=== PATIENT | male | born 1965 | race Two or more races ===

== ENCOUNTER 2016-06-07 18:48 | Inpatient (IN) | payer OTHER, MEDICAID ==
[~2016-06-07] VITALS: Ht 172.7 cm; Wt 45.5 kg
[2016-06-07] MEDS ORDERED: KETOROLAC TROMETH 30 MG/ML 1ML VIAL IV ONE (20:45)
[2016-06-07] MEDS ORDERED: MORPHINE SULF INJ 2 MG/ML SYRINGE 1ML IV ONE (22:15)
[2016-06-07] MEDS ORDERED: PIPERACILLIN-TAZOB 3.375GM 100 ML IV ONE (22:15)
[2016-06-07] MEDS ORDERED: SODIUM CHLORIDE 0.9% 1,000 ML IV ONE ×2 (22:15)
[2016-06-07 22:51] LABS: Basophils # (auto) 0 uL; Basophils % (auto) 0.4 % (0.0-2.0); DEFINITIVE VIEW TRANSMISSION; Eosinophils # (auto) 0 uL; Eosinophils % (auto) 0.4 % (0.0-7.0); Hemoglobin 11.3 g/dL (13.5-17.5); Lymphocytes # (auto) 0.8 uL; Lymphocytes % (auto) 9.6 % (10.0-50.0); Mean Corpuscular Hgb Conc. 32.4 g/dL (32.0-36.0); Mean Corpuscular Volume 98.8 fL (80.0-100.0); Mean Platelet Volume 8.3 fL (7.4-10.4); Monocytes # (auto) 0.3 uL; Monocytes % (auto) 3.2 % (0.0-12.0); Neutrophils # (auto) 7.2 uL; Neutrophils % (auto) 86.4 % (37.0-80.0); Platelet Count (auto) 292 10^3/uL (140-450); White Blood Cell 8.3 10^3/uL (4.4-10.8)
[2016-06-07 23:05] LABS: INR 1.13 (0.9-1.15); Partial Thromboplastin Time 30.5 sec (22.64-33.71); Prothrombin Time 11.6 sec (9.37-12.3)
[2016-06-07 23:08] LABS: Red Cell Distribution Width 22.5 % (11.6-16.0)
[2016-06-07 23:19] LABS: Albumin 2.9 g/dL (3.4-5.0); Alkaline Phosphatase 189 U/L (45-117); Anion Gap 14 (5-15); Aspartate Aminotransferase 36 U/L (15-37); BUN/Creatinine Ratio 9.2; Bilirubin, Total 0.6 mg/dL (0.2-1.0); Blood Urea Nitrogen 16 mg/dL (7-18); Calcium 8.6 mg/dL (8.5-10.1); Chloride 128 mmol/L (98-107); GFR African American 53 mL/min; GFR Non-African American 44 mL/min; Glucose 77 mg/dL (74-106); Potassium 3.3 mmol/L (3.5-5.1); Sodium 150 mmol/L (136-145); Total Protein 8.8 g/dL (6.4-8.2)
[2016-06-07 23:28] LABS: Carbon Dioxide 8 mmol/L (21-32)
[2016-06-07 23:31] LABS: Anisocytosis Moderate; Platelet Estimate Adequate
[2016-06-08] MEDS ORDERED: ALBUTEROL SULF 2.5 MG/0.5ML(0.5%) NEB SOLN NEB ONE
[2016-06-08] MEDS ORDERED: IPRATROPIUM BROM 0.5 MG/2.5ML INH SOL NEB ONE
[2016-06-08 00:55] LABS: Urine Bilirubin Negative (Negative); Urine Color Yellow (Yellow); Urine Glucose Normal (Normal); Urine Ketone Negative (Negative); Urine Nitrite Negative (Negative); Urine RBC 2 /hpf (0 - 3); Urine Squamous Epithelial Cell FEW /hpf (<5); Urine Urobilinogen Normal (Negative)
[2016-06-08 00:58] LABS: Urine Blood 1+ /uL (Negative)
[2016-06-08] MEDS ORDERED: GABA300C8 PO (01:33)
[2016-06-08] MEDS ORDERED: SODI650T PO (01:33)
[2016-06-08] MEDS ORDERED: PANT40TA2 PO (01:33)
[2016-06-08] MEDS ORDERED: METO-516 PO (01:33)
[2016-06-08] MEDS: MAGNESIUM SULFATE 1GM/100ML 100 ML IV SCH ×4 (01:39→04:31)
[2016-06-08] MEDS ORDERED: MORPHINE SULF INJ 2 MG/ML SYRINGE 1ML IV PRN (05:30)
[2016-06-08] MEDS ORDERED: NITROGLYCERIN 0.4 MG SL TAB SL PRN (05:30)
[2016-06-08] MEDS ORDERED: HYDROcodone-ACET 5/325MG TAB PO PRN (05:30)
[2016-06-08] MEDS ORDERED: ONDANSETRON HCL 4 MG/2 ML VIAL IV PRN (05:30)
[2016-06-08] MEDS ORDERED: ACETAMINOPHEN 325 MG TAB PO PRN (05:30)
[2016-06-08] MEDS ORDERED: SODIUM CHLORIDE 0.9% 1,000 ML IV SCH (05:33)
[2016-06-08] MEDS ORDERED: METOCLOPRAMIDE HCL 10 MG TAB PO SCH (06:00)
[2016-06-08] MEDS ORDERED: cefTRIAXone 1GM/50ML D5W 50 ML IV SCH (06:00)
[2016-06-08 08:05] LABS: BUN/Creatinine Ratio 8.9; Calcium 7.9 mg/dL (8.5-10.1); Magnesium 2.6 mg/dL (1.6-2.6)
[2016-06-08 08:11] LABS: Potassium 2.7 mmol/L (3.5-5.1)
[2016-06-08 08:13] VITALS: BP 126/69
[2016-06-08] MEDS ORDERED: MORPHINE SULF 15mg ER tab PO SCH (10:00)
[2016-06-08] MEDS ORDERED: LACTULOSE 20Gm/30ML SOLN PO SCH (10:00)
[2016-06-08] MEDS ORDERED: FAMOTIDINE 20 MG TAB PO SCH (10:00)
[2016-06-08] MEDS ORDERED: ENOXAPARIN SOD 40 MG/0.4 ML SYRINGE SC SCH (10:00)
[2016-06-08] MEDS ORDERED: SODIUM BICARBONATE 650 MG TAB PO SCH (10:00)
[2016-06-08] MEDS ORDERED: ENOXAPARIN SOD 30 MG/0.3 ML SYRINGE SC SCH (10:00)
[2016-06-08] MEDS ORDERED: PANTOPRAZOLE 40 MG TAB PO SCH (10:00)
== END 2016-06-08 09:37 | disposition left against medical advice (07) | DRG 689 ==
LOC: ER 18:57 → TELE 18:58 → TELE-WESTW 06-08 06:17
PROVIDERS: ADMIT Nurse Practitioner; ATTEND Nurse Practitioner
DX: N39.0 Urinary tract infection, site not specified (principal); G92 Toxic encephalopathy; E87.2 Acidosis; E72.20 Disorder of urea cycle metabolism, unspecified; K56.7 Ileus, unspecified; E86.0 Dehydration; N18.9 Chronic kidney disease, unspecified; G89.4 Chronic pain syndrome; F12.90 Cannabis use, unspecified, uncomplicated; K20.9 Esophagitis, unspecified; N20.0 Calculus of kidney
CPT/HCPCS: 36415; 36600; 70450; 71010; 74176; 80048; 80053; 80320; 81001; 82140; 82550; 82805; 82962; 83605; 83735; 84484; 85025; 85610; 85730; 86141; 87040; 87086; 93005; 94640; 96361; 96365; 96367; 96375; 99291; G0434; J0696; J1885; J2543

== ENCOUNTER 2017-04-18 17:08 | Inpatient (IN) | payer OTHER, MEDICAID ==
[~2017-04-18] VITALS: Ht 172.7 cm; Wt 50.8 kg
[~2017-04-18 17:08] MED LIST: GABA300C10 PO; METO-516 PO; PANT40TA2 PO; SODI650T PO
[2017-04-18 18:18] LABS: Basophils # (auto) 0 uL; Eosinophils # (auto) 0 uL; Hemoglobin 8.6 g/dL (13.5-17.5); Monocytes # (auto) 0.2 uL; Red Cell Distribution Width 16.3 % (11.8-14.3)
[2017-04-18 18:19] LABS: Basophils % (auto) 0.3 % (0.0-2.0); Hematocrit 27.4 % (41.0-53.0); Lymphocytes # (auto) 0.5 uL; Lymphocytes % (auto) 5.1 % (10.0-50.0); Mean Corpuscular Hemoglobin 33.5 pg (28.0-32.0); Mean Corpuscular Hgb Conc. 31.2 g/dL (32.0-36.0); Mean Corpuscular Volume 107.1 fL (80.0-100.0); Monocytes % (auto) 2.5 % (0.0-12.0); Neutrophils # (auto) 8.6 uL; Neutrophils % (auto) 92.1 % (37.0-80.0); Nucleated Red Blood Cells % 0.1 %; Red Blood Cells 2.56 10^6/uL (4.5-5.90); White Blood Cell 9.4 10^3/uL (4.4-10.8)
[2017-04-18 18:20] LABS: Albumin 2.3 g/dL (3.4-5.0); BUN/Creatinine Ratio 9.8
[2017-04-18 18:22] LABS: Bilirubin, Total 0.2 mg/dL (0.2-1.0); Total Protein 7.1 g/dL (6.4-8.2)
[2017-04-18 18:25] LABS: Platelet Count (auto) 126 10^3/uL (140-450)
[2017-04-18] MEDS ORDERED: SODIUM CHLORIDE 0.9% 1,000 ML IV ONE ×2 (19:56)
[2017-04-18] MEDS ORDERED: POTASSIUM CHL 10% (20 MEQ/15ML) 15ml ORAL SOLN PO ONE (20:00)
[2017-04-18] MEDS ORDERED: SODIUM BICARBONATE 8.4 % INJ 50ML VIAL IV ONE (20:00)
[2017-04-18] MEDS ORDERED: cefTRIAXone 1GM/10ml IVPUSH 10 ML IV ONE (20:15)
[2017-04-18 22:06] LABS: Urine Bacteria FEW /hpf (None Seen); Urine Blood TRACE /uL (Negative); Urine Mucus FEW (None Seen); Urine Specific Gravity 1.009 (1.001-1.035); Urine WBC 3 /hpf (0 - 3)
[2017-04-19] VITALS (8 sets, daily range): BP systolic 118–142; BP diastolic 68–95
[2017-04-19] MEDS ORDERED: MORPHINE SULFATE 4 MG/ML SYR/VIAL IV PRN ×3 (00:15→12:15)
[2017-04-19] MEDS ORDERED: METOCLOPRAMIDE HCL 10 MG TAB PO PRN ×2 (00:15→06:45)
[2017-04-19] MEDS ORDERED: NITROGLYCERIN 0.4 MG SL TAB SL PRN (00:15)
[2017-04-19] MEDS ORDERED: GABAPENTIN 300 MG CAP PO SCH ×2 (06:00)
[2017-04-19] MEDS: SODIUM CHLORIDE 0.9% 1,000 ML IV SCH ×2 (06:30→16:59)
[2017-04-19 08:34] LABS: Basophils # (auto) 0 uL; Basophils % (auto) 0.2 % (0.0-2.0); Eosinophils # (auto) 0 uL; Eosinophils % (auto) 0.1 % (0.0-7.0); Hematocrit 26.2 % (41.0-53.0); Hemoglobin 8.4 g/dL (13.5-17.5); Lymphocytes # (auto) 0.4 uL; Lymphocytes % (auto) 4.2 % (10.0-50.0); Mean Corpuscular Hemoglobin 33.2 pg (28.0-32.0); Mean Corpuscular Hgb Conc. 32.2 g/dL (32.0-36.0); Monocytes # (auto) 0.2 uL; Monocytes % (auto) 2.1 % (0.0-12.0); Neutrophils # (auto) 8.9 uL; Neutrophils % (auto) 93.4 % (37.0-80.0); Platelet Count (auto) 131 10^3/uL (140-450); Red Blood Cells 2.54 10^6/uL (4.5-5.90); Red Cell Distribution Width 15.5 % (11.8-14.3); White Blood Cell 9.5 10^3/uL (4.4-10.8)
[2017-04-19 08:38] LABS: Albumin 2.3 g/dL (3.4-5.0); Calcium 6.9 mg/dL (8.5-10.1); Magnesium 1.3 mg/dL (1.6-2.6); Potassium 3.2 mmol/L (3.5-5.1)
[2017-04-19 08:42] LABS: Bilirubin, Total 0.2 mg/dL (0.2-1.0); Total Protein 7.1 g/dL (6.4-8.2)
[2017-04-19] MEDS ORDERED: SODIUM BICARBONATE 650 MG TAB PO SCH (10:00)
[2017-04-19] MEDS ORDERED: PANTOPRAZOLE 40 MG/10 ML VIAL IV SCH (10:00)
[2017-04-19] MEDS: SODIUM BICARBONATE 650 MG TAB PO SCH ×2 (10:02→21:07)
[2017-04-19] MEDS: PANTOPRAZOLE 40 MG/10 ML VIAL IV SCH (10:02)
[2017-04-19] MEDS: ACETAMINOPHEN 325 MG TAB PO PRN (12:13)
[2017-04-19] MEDS ORDERED: MAGNESIUM SULFATE 1GM/100ML 100 ML IV ONE (12:15)
[2017-04-19] MEDS ORDERED: DOCUSATE SOD 100 MG CAP PO PRN (12:15)
[2017-04-19] MEDS ORDERED: ONDANSETRON HCL 4 MG/2 ML VIAL IV PRN (12:15)
[2017-04-19] MEDS ORDERED: cefTRIAXone 1GM/10ml IVPUSH 10 ML IV ONE (12:15)
[2017-04-19] MEDS ORDERED: AZITHROMYCIN 500MG/ 250ML 250 ML IV ONE (12:15)
[2017-04-19] MEDS ORDERED: POTASSIUM CHLORIDE 8 MEQ TAB PO ONE (12:30)
[2017-04-19] MEDS: HYDROcodone-ACET 5/325MG TAB PO PRN ×2 (13:34→21:07)
[2017-04-19] MEDS: FAMOTIDINE 20 MG TAB PO SCH (15:40)
[2017-04-19] MEDS: BOOST PLUS 8 ounce PO SCH (18:08)
[2017-04-19] MEDS: ALBUTEROL SULF 2.5 MG/0.5ML(0.5%) NEB SOLN NEB SCH (19:33)
[2017-04-19] MEDS: IPRATROPIUM BROM 0.5 MG/2.5ML INH SOL NEB SCH (19:33)
[2017-04-19] MEDS ORDERED: FAMOTIDINE 20 MG TAB PO SCH (22:00)
[2017-04-20] MEDS: HYDROcodone-ACET 5/325MG TAB PO PRN ×2 (04:01→16:01)
[2017-04-20 05:00] VITALS: BP 118/70
[2017-04-20] MEDS: SODIUM CHLORIDE 0.9% 1,000 ML IV SCH ×2 (05:20→12:30)
[2017-04-20 05:49] LABS: Basophils # (auto) 0 uL; Basophils % (auto) 0.3 % (0.0-2.0); Eosinophils # (auto) 0 uL; Platelet Count (auto) 126 10^3/uL (140-450); White Blood Cell 5.8 10^3/uL (4.4-10.8)
[2017-04-20 05:52] LABS: Eosinophils % (auto) 0.2 % (0.0-7.0); Hematocrit 26.1 % (41.0-53.0); Hemoglobin 8.6 g/dL (13.5-17.5); Lymphocytes # (auto) 0.4 uL; Lymphocytes % (auto) 6.5 % (10.0-50.0); Mean Corpuscular Hgb Conc. 32.9 g/dL (32.0-36.0); Mean Corpuscular Volume 103.3 fL (80.0-100.0); Monocytes # (auto) 0.1 uL; Monocytes % (auto) 2.5 % (0.0-12.0); Neutrophils # (auto) 5.3 uL; Neutrophils % (auto) 90.5 % (37.0-80.0); Nucleated Red Blood Cells % 0.1 %; Red Blood Cells 2.52 10^6/uL (4.5-5.90); Red Cell Distribution Width 15.3 % (11.8-14.3)
[2017-04-20 06:08] LABS: Albumin 2.2 g/dL (3.4-5.0); Bilirubin, Total 0.3 mg/dL (0.2-1.0); Calcium 6.7 mg/dL (8.5-10.1); Potassium 3.4 mmol/L (3.5-5.1)
[2017-04-20] MEDS: IPRATROPIUM BROM 0.5 MG/2.5ML INH SOL NEB SCH ×4 (06:48→19:17)
[2017-04-20] MEDS: ALBUTEROL SULF 2.5 MG/0.5ML(0.5%) NEB SOLN NEB SCH ×4 (06:48→19:17)
[2017-04-20 08:00] VITALS: BP 128/80
[2017-04-20] MEDS: BOOST PLUS 8 ounce PO SCH ×3 (08:00→18:00)
[2017-04-20] MEDS: PANTOPRAZOLE 40 MG/10 ML VIAL IV SCH (10:14)
[2017-04-20] MEDS: AZITHROMYCIN 500MG/ 250ML 250 ML IV SCH (10:14)
[2017-04-20] MEDS: MULTIPLE VITAMIN TAB PO SCH (10:15)
[2017-04-20] MEDS: SODIUM BICARBONATE 650 MG TAB PO SCH (10:15)
[2017-04-20] MEDS: GABAPENTIN 300 MG CAP PO SCH (10:15)
[2017-04-20] MEDS: FAMOTIDINE 20 MG TAB PO SCH (10:15)
[2017-04-20] MEDS: cefTRIAXone 1GM/10ml IVPUSH 10 ML IV SCH (10:31)
[2017-04-20 12:00] VITALS: BP 113/70
[2017-04-20] MEDS ORDERED: SOD CHL 0.45% WITH 20MEQ KCL 1,000 ML IV SCH (13:15)
[2017-04-20 17:08] VITALS: BP 125/71
[2017-04-20] MEDS: MAGNESIUM SULFATE 1GM/100ML 100 ML IV SCH ×2 (18:12→19:24)
[2017-04-20] MEDS: SODIUM BICARBONATE 50ML VIAL 50 ML in D5W/SOD CHL 0.45%/KCL 20MEQ 1,000 ML IV SCH (18:29)
[2017-04-20 19:06] LABS: Creatinine, Urine 20 mg/dL (30.0-125.0); Sodium Urine 85 mmol/L (40-220)
[2017-04-20 19:56] LABS: INR 1.08 (0.9-1.15); Prothrombin Time 11.8 sec (9.37-12.3)
[2017-04-20 22:00] VITALS: BP 105/63
[2017-04-21] MEDS: IPRATROPIUM BROM 0.5 MG/2.5ML INH SOL NEB SCH ×4 (01:16→19:43)
[2017-04-21] MEDS: ALBUTEROL SULF 2.5 MG/0.5ML(0.5%) NEB SOLN NEB SCH ×4 (01:16→19:43)
[2017-04-21 05:00] VITALS: BP 129/63
[2017-04-21] MEDS: SODIUM BICARBONATE 50ML VIAL 50 ML in D5W/SOD CHL 0.45%/KCL 20MEQ 1,000 ML IV SCH ×3 (05:21→23:15)
[2017-04-21 07:49] LABS: Basophils # (auto) 0 uL; Basophils % (auto) 0.5 % (0.0-2.0); Eosinophils # (auto) 0 uL; Hematocrit 26.5 % (41.0-53.0); Hemoglobin 8.5 g/dL (13.5-17.5); Lymphocytes # (auto) 0.4 uL; Mean Corpuscular Hgb Conc. 32.1 g/dL (32.0-36.0)
[2017-04-21 07:52] LABS: Eosinophils % (auto) 0.2 % (0.0-7.0); Mean Corpuscular Hemoglobin 33.4 pg (28.0-32.0); Mean Corpuscular Volume 104.2 fL (80.0-100.0); Monocytes # (auto) 0.1 uL; Monocytes % (auto) 3.2 % (0.0-12.0); Neutrophils # (auto) 3.9 uL; Neutrophils % (auto) 87.1 % (37.0-80.0); Platelet Count (auto) 125 10^3/uL (140-450); Red Blood Cells 2.54 10^6/uL (4.5-5.90); Red Cell Distribution Width 15.6 % (11.8-14.3); White Blood Cell 4.4 10^3/uL (4.4-10.8)
[2017-04-21] MEDS: BOOST PLUS 8 ounce PO SCH ×3 (08:00→18:00)
[2017-04-21 08:04] LABS: BUN/Creatinine Ratio 13.3; Calcium 7.3 mg/dL (8.5-10.1); Magnesium 2.4 mg/dL (1.6-2.6); Potassium 3.5 mmol/L (3.5-5.1)
[2017-04-21 08:10] LABS: Phosphorus 2.8 mg/dL (2.5-4.90); Uric Acid 5.2 mg/dL (3.5-7.2)
[2017-04-21 08:11] VITALS: BP 126/72
[2017-04-21] MEDS: cefTRIAXone 1GM/10ml IVPUSH 10 ML IV SCH (08:54)
[2017-04-21] MEDS: PANTOPRAZOLE 40 MG/10 ML VIAL IV SCH (09:19)
[2017-04-21] MEDS: AZITHROMYCIN 500MG/ 250ML 250 ML IV SCH (09:20)
[2017-04-21] MEDS: GABAPENTIN 300 MG CAP PO SCH (09:20)
[2017-04-21] MEDS: FAMOTIDINE 20 MG TAB PO SCH (09:20)
[2017-04-21] MEDS: MULTIPLE VITAMIN TAB PO SCH (09:20)
[2017-04-21] MEDS ORDERED: POTASSIUM CHL 20 Meq TABLET PO ONE (11:15)
[2017-04-21 11:50] VITALS: BP 120/70
[2017-04-21 17:12] VITALS: BP 124/70
[2017-04-21] MEDS: HYDROcodone-ACET 5/325MG TAB PO PRN (21:52)
[2017-04-21] MEDS: TEMAZEPAM 15 MG CAP PO PRN (21:53)
[2017-04-21 22:00] VITALS: BP 123/73
[2017-04-22] VITALS (7 sets, daily range): BP systolic 111–135; BP diastolic 66–74
[2017-04-22] MEDS: SODIUM BICARBONATE 50ML VIAL 50 ML in D5W/SOD CHL 0.45%/KCL 20MEQ 1,000 ML IV SCH ×3 (04:45→22:15)
[2017-04-22] MEDS: IPRATROPIUM BROM 0.5 MG/2.5ML INH SOL NEB SCH ×4 (07:19→19:34)
[2017-04-22] MEDS: ALBUTEROL SULF 2.5 MG/0.5ML(0.5%) NEB SOLN NEB SCH ×4 (07:19→19:34)
[2017-04-22] MEDS: BOOST PLUS 8 ounce PO SCH ×3 (08:00→18:00)
[2017-04-22 08:20] LABS: Basophils # (auto) 0 uL; Eosinophils # (auto) 0 uL; Eosinophils % (auto) 0.5 % (0.0-7.0); Lymphocytes # (auto) 0.4 uL; Monocytes # (auto) 0.1 uL
[2017-04-22 08:22] LABS: Basophils % (auto) 0.5 % (0.0-2.0); Hematocrit 25.3 % (41.0-53.0); Hemoglobin 8.3 g/dL (13.5-17.5); Lymphocytes % (auto) 12.7 % (10.0-50.0); Mean Corpuscular Hemoglobin 33.5 pg (28.0-32.0); Mean Corpuscular Hgb Conc. 32.7 g/dL (32.0-36.0); Mean Corpuscular Volume 102.4 fL (80.0-100.0); Monocytes % (auto) 4.3 % (0.0-12.0); Neutrophils # (auto) 2.4 uL; Platelet Count (auto) 151 10^3/uL (140-450); Red Blood Cells 2.48 10^6/uL (4.5-5.90); Red Cell Distribution Width 15.6 % (11.8-14.3)
[2017-04-22 08:35] LABS: BUN/Creatinine Ratio 11.4; Calcium 7.3 mg/dL (8.5-10.1); Magnesium 2.4 mg/dL (1.6-2.6); Potassium 4.1 mmol/L (3.5-5.1)
[2017-04-22 08:37] LABS: Alanine Aminotransferase 27 U/L (16-61); Albumin 2.2 g/dL (3.4-5.0); Alkaline Phosphatase 141 U/L (45-117); Aspartate Aminotransferase 25 U/L (15-37); Bilirubin, Direct < 0.1 mg/dL (0-0.2); Bilirubin, Total 0.3 mg/dL (0.2-1.0); Lactate Dehydrogenase 203 U/L (87-241); Total Protein 7.5 g/dL (6.4-8.2)
[2017-04-22 08:48] LABS: % Iron Saturation 72.7 % (20-55)
[2017-04-22] MEDS: GABAPENTIN 300 MG CAP PO SCH (09:32)
[2017-04-22] MEDS: MULTIPLE VITAMIN TAB PO SCH (09:33)
[2017-04-22] MEDS: PANTOPRAZOLE 40 MG/10 ML VIAL IV SCH (09:33)
[2017-04-22] MEDS: FAMOTIDINE 20 MG TAB PO SCH (09:33)
[2017-04-22] MEDS: POTASSIUM CHL 20 Meq TABLET PO SCH (09:33)
[2017-04-22] MEDS: cefTRIAXone 1GM/10ml IVPUSH 10 ML IV SCH (09:34)
[2017-04-22] MEDS: AZITHROMYCIN 500MG/ 250ML 250 ML IV SCH (09:35)
[2017-04-22 14:43] LABS: Ferritin 661.5 ng/mL (10-322)
[2017-04-22 14:44] LABS: Folate (Folic Acid) 13.22 ng/mL (5.38-24)
[2017-04-22] MEDS: HYDROcodone-ACET 5/325MG TAB PO PRN (22:07)
[2017-04-23] MEDS: HYDROcodone-ACET 5/325MG TAB PO PRN ×3 (03:49→20:11)
[2017-04-23 05:00] VITALS: BP 118/68
[2017-04-23] MEDS: IPRATROPIUM BROM 0.5 MG/2.5ML INH SOL NEB SCH ×4 (05:53→18:58)
[2017-04-23] MEDS: ALBUTEROL SULF 2.5 MG/0.5ML(0.5%) NEB SOLN NEB SCH ×4 (05:54→18:58)
[2017-04-23 05:56] LABS: Basophils # (auto) 0 uL; Basophils % (auto) 0.9 % (0.0-2.0); Eosinophils # (auto) 0 uL; Eosinophils % (auto) 1.1 % (0.0-7.0); Hemoglobin 7.2 g/dL (13.5-17.5); Lymphocytes # (auto) 0.4 uL; Monocytes # (auto) 0.2 uL; Nucleated Red Blood Cells % 0.1 %; White Blood Cell 2.6 10^3/uL (4.4-10.8)
[2017-04-23 05:59] LABS: Lymphocytes % (auto) 13.6 % (10.0-50.0); Mean Corpuscular Hemoglobin 33.6 pg (28.0-32.0); Mean Corpuscular Hgb Conc. 32.8 g/dL (32.0-36.0); Mean Corpuscular Volume 102.4 fL (80.0-100.0); Monocytes % (auto) 8.2 % (0.0-12.0); Neutrophils % (auto) 76.2 % (37.0-80.0); Platelet Count (auto) 150 10^3/uL (140-450); Red Blood Cells 2.14 10^6/uL (4.5-5.90); Red Cell Distribution Width 15.2 % (11.8-14.3)
[2017-04-23 06:10] LABS: BUN/Creatinine Ratio 12.4; Calcium 7.3 mg/dL (8.5-10.1); Magnesium 1.9 mg/dL (1.6-2.6)
[2017-04-23] MEDS: SODIUM BICARBONATE 50ML VIAL 50 ML in D5W/SOD CHL 0.45%/KCL 20MEQ 1,000 ML IV SCH (06:55)
[2017-04-23] MEDS: BOOST PLUS 8 ounce PO SCH ×3 (08:00→18:00)
[2017-04-23 09:00] VITALS: BP 116/60
[2017-04-23] MEDS: POTASSIUM CHL 20 Meq TABLET PO SCH (10:00)
[2017-04-23] MEDS: FAMOTIDINE 20 MG TAB PO SCH (10:00)
[2017-04-23] MEDS: AZITHROMYCIN 500MG/ 250ML 250 ML IV SCH (10:16)
[2017-04-23] MEDS: GABAPENTIN 300 MG CAP PO SCH (10:16)
[2017-04-23] MEDS: MULTIPLE VITAMIN TAB PO SCH (10:16)
[2017-04-23] MEDS: PANTOPRAZOLE 40 MG/10 ML VIAL IV SCH (10:16)
[2017-04-23] MEDS: cefTRIAXone 1GM/10ml IVPUSH 10 ML IV SCH (10:17)
[2017-04-23] MEDS: SODIUM BICARBONATE 50ML VIAL 50 ML in D5W/SOD CHL 0.45% 1,000 ML IV SCH ×2 (12:11→21:30)
[2017-04-23 13:00] VITALS: BP 113/62
[2017-04-23 17:00] VITALS: BP 129/65
[2017-04-23 18:54] LABS: Hematocrit 27.3 % (41.0-53.0); Hemoglobin 8.6 g/dL (13.5-17.5)
[2017-04-23 22:39] VITALS: BP 117/56
[2017-04-24] MEDS: HYDROcodone-ACET 5/325MG TAB PO PRN ×5 (00:29→22:42)
[2017-04-24] MEDS: TEMAZEPAM 15 MG CAP PO PRN (01:09)
[2017-04-24 05:09] VITALS: BP 112/61
[2017-04-24 05:49] LABS: Basophils # (auto) 0 uL; Eosinophils # (auto) 0 uL; Eosinophils % (auto) 1.1 % (0.0-7.0); Hemoglobin 7.3 g/dL (13.5-17.5); Lymphocytes # (auto) 0.5 uL; Mean Corpuscular Hgb Conc. 32.2 g/dL (32.0-36.0); Monocytes # (auto) 0.3 uL; White Blood Cell 2.8 10^3/uL (4.4-10.8)
[2017-04-24 05:51] LABS: Basophils % (auto) 0.9 % (0.0-2.0); Hematocrit 22.7 % (41.0-53.0); Lymphocytes % (auto) 18.2 % (10.0-50.0); Mean Corpuscular Hemoglobin 33.3 pg (28.0-32.0); Mean Corpuscular Volume 103.4 fL (80.0-100.0); Monocytes % (auto) 9.3 % (0.0-12.0); Neutrophils % (auto) 70.5 % (37.0-80.0); Platelet Count (auto) 164 10^3/uL (140-450); Red Blood Cells 2.19 10^6/uL (4.5-5.90); Red Cell Distribution Width 15.2 % (11.8-14.3)
[2017-04-24 06:16] LABS: Calcium 7.7 mg/dL (8.5-10.1); Potassium 4.3 mmol/L (3.5-5.1)
[2017-04-24 06:20] LABS: Albumin 2.2 g/dL (3.4-5.0); BUN/Creatinine Ratio 14.4; Magnesium 1.7 mg/dL (1.6-2.6)
[2017-04-24 06:29] LABS: Bilirubin, Total 0.2 mg/dL (0.2-1.0); Total Protein 7.4 g/dL (6.4-8.2)
[2017-04-24] MEDS: IPRATROPIUM BROM 0.5 MG/2.5ML INH SOL NEB SCH ×5 (07:00→20:38)
[2017-04-24] MEDS: ALBUTEROL SULF 2.5 MG/0.5ML(0.5%) NEB SOLN NEB SCH ×5 (07:00→20:38)
[2017-04-24 08:32] VITALS: BP 106/63
[2017-04-24] MEDS: cefTRIAXone 1GM/10ml IVPUSH 10 ML IV SCH (09:04)
[2017-04-24] MEDS: BOOST PLUS 8 ounce PO SCH ×3 (09:05→18:08)
[2017-04-24] MEDS: SODIUM BICARBONATE 50ML VIAL 50 ML in D5W/SOD CHL 0.45% 1,000 ML IV SCH ×3 (09:05→22:41)
[2017-04-24] MEDS: PANTOPRAZOLE 40 MG/10 ML VIAL IV SCH (11:14)
[2017-04-24] MEDS: POTASSIUM CHL 20 Meq TABLET PO SCH (11:15)
[2017-04-24] MEDS: MULTIPLE VITAMIN TAB PO SCH (11:15)
[2017-04-24] MEDS: GABAPENTIN 300 MG CAP PO SCH (11:16)
[2017-04-24] MEDS: FAMOTIDINE 20 MG TAB PO SCH (11:16)
[2017-04-24] MEDS: AZITHROMYCIN 500MG/ 250ML 250 ML IV SCH (11:17)
[2017-04-24 12:42] VITALS: BP 122/67
[2017-04-24 16:44] VITALS: BP 110/69
[2017-04-24 22:09] VITALS: BP 117/63
[2017-04-25] VITALS (10 sets, daily range): BP systolic 110–140; BP diastolic 66–77
[2017-04-25] MEDS: HYDROcodone-ACET 5/325MG TAB PO PRN ×3 (04:01→19:58)
[2017-04-25] MEDS: SODIUM BICARBONATE 50ML VIAL 50 ML in D5W/SOD CHL 0.45% 1,000 ML IV SCH ×3 (05:48→23:04)
[2017-04-25 06:01] LABS: Basophils # (auto) 0 uL; Eosinophils # (auto) 0 uL; Lymphocytes # (auto) 0.5 uL; Monocytes # (auto) 0.3 uL
[2017-04-25 06:07] LABS: Basophils % (auto) 1.1 % (0.0-2.0); Eosinophils % (auto) 1.2 % (0.0-7.0); Hematocrit 19.4 % (41.0-53.0); Lymphocytes % (auto) 16.9 % (10.0-50.0); Mean Corpuscular Hemoglobin 33.1 pg (28.0-32.0); Mean Corpuscular Volume 103.4 fL (80.0-100.0); Neutrophils # (auto) 2.2 uL; Neutrophils % (auto) 70.8 % (37.0-80.0); Nucleated Red Blood Cells % 0.4 %; Platelet Count (auto) 152 10^3/uL (140-450); Red Blood Cells 1.88 10^6/uL (4.5-5.90); Red Cell Distribution Width 15.1 % (11.8-14.3)
[2017-04-25] MEDS: ALBUTEROL SULF 2.5 MG/0.5ML(0.5%) NEB SOLN NEB SCH ×3 (06:40→19:36)
[2017-04-25] MEDS: IPRATROPIUM BROM 0.5 MG/2.5ML INH SOL NEB SCH ×3 (06:40→19:36)
[2017-04-25 07:06] LABS: Potassium 4.4 mmol/L (3.5-5.1)
[2017-04-25 07:18] LABS: BUN/Creatinine Ratio 11.9; Calcium 7.5 mg/dL (8.5-10.1)
[2017-04-25 07:31] LABS: Hemoglobin 6.2 g/dL (13.5-17.5)
[2017-04-25] MEDS: BOOST PLUS 8 ounce PO SCH ×3 (08:00→18:00)
[2017-04-25] MEDS: FAMOTIDINE 20 MG TAB PO SCH (10:09)
[2017-04-25] MEDS: MULTIPLE VITAMIN TAB PO SCH (10:09)
[2017-04-25] MEDS: POTASSIUM CHL 20 Meq TABLET PO SCH (10:18)
[2017-04-25] MEDS: GABAPENTIN 300 MG CAP PO SCH (10:23)
[2017-04-25] MEDS: cefTRIAXone 1GM/10ml IVPUSH 10 ML IV SCH (10:26)
[2017-04-25] MEDS: PANTOPRAZOLE 40 MG/10 ML VIAL IV SCH (10:28)
[2017-04-25] MEDS: AZITHROMYCIN 500MG/ 250ML 250 ML IV SCH (10:28)
[2017-04-25 11:58] LABS: Hematocrit 19.1 % (41.0-53.0)
[2017-04-25 12:03] LABS: Hemoglobin 6.2 g/dL (13.5-17.5)
[2017-04-25] MEDS: methylPREDNISolone SOD SUCC 125 MG/2 ML VL IV SCH ×2 (17:53→23:24)
[2017-04-25] MEDS: TEMAZEPAM 15 MG CAP PO PRN (23:41)
[2017-04-26] VITALS (8 sets, daily range): BP systolic 126–140; BP diastolic 69–78
[2017-04-26] MEDS: IPRATROPIUM BROM 0.5 MG/2.5ML INH SOL NEB SCH ×4 (00:59→18:56)
[2017-04-26] MEDS: ALBUTEROL SULF 2.5 MG/0.5ML(0.5%) NEB SOLN NEB SCH ×4 (00:59→18:56)
[2017-04-26] MEDS: SODIUM BICARBONATE 50ML VIAL 50 ML in D5W/SOD CHL 0.45% 1,000 ML IV SCH ×2 (04:10→11:57)
[2017-04-26] MEDS: methylPREDNISolone SOD SUCC 125 MG/2 ML VL IV SCH ×2 (05:46→17:11)
[2017-04-26] MEDS: BOOST PLUS 8 ounce PO SCH ×3 (08:00→18:00)
[2017-04-26 09:03] LABS: Hemoglobin 10.5 g/dL (13.5-17.5)
[2017-04-26] MEDS: cefTRIAXone 1GM/10ml IVPUSH 10 ML IV SCH (09:20)
[2017-04-26] MEDS: HYDROcodone-ACET 5/325MG TAB PO PRN ×3 (09:20→18:15)
[2017-04-26] MEDS: AZITHROMYCIN 500MG/ 250ML 250 ML IV SCH (09:48)
[2017-04-26] MEDS: PANTOPRAZOLE 40 MG/10 ML VIAL IV SCH (09:49)
[2017-04-26] MEDS: POTASSIUM CHL 20 Meq TABLET PO SCH (09:49)
[2017-04-26] MEDS: GABAPENTIN 300 MG CAP PO SCH (09:49)
[2017-04-26] MEDS: FAMOTIDINE 20 MG TAB PO SCH (09:49)
[2017-04-26] MEDS: MULTIPLE VITAMIN TAB PO SCH (09:49)
[2017-04-26] MEDS: TEMAZEPAM 15 MG CAP PO PRN (21:45)
[2017-04-27] MEDS: ALBUTEROL SULF 2.5 MG/0.5ML(0.5%) NEB SOLN NEB SCH ×3 (00:45→12:15)
[2017-04-27] MEDS: IPRATROPIUM BROM 0.5 MG/2.5ML INH SOL NEB SCH ×3 (00:45→12:15)
[2017-04-27] MEDS: ACETAMINOPHEN 325 MG TAB PO PRN (04:14)
[2017-04-27 05:00] VITALS: BP 121/70
[2017-04-27] MEDS: BOOST PLUS 8 ounce PO SCH ×3 (08:00→18:18)
[2017-04-27 09:00] VITALS: BP 128/78
[2017-04-27] MEDS: HYDROcodone-ACET 5/325MG TAB PO PRN ×2 (09:24→17:04)
[2017-04-27 09:43] LABS: Basophils # (auto) 0 uL; Basophils % (auto) 0.1 % (0.0-2.0); Eosinophils # (auto) 0 uL; Eosinophils % (auto) 0.1 % (0.0-7.0); Hematocrit 29.8 % (41.0-53.0); Hemoglobin 9.6 g/dL (13.5-17.5); Lymphocytes # (auto) 0.7 uL; Lymphocytes % (auto) 11.7 % (10.0-50.0); Mean Corpuscular Hemoglobin 31.9 pg (28.0-32.0); Mean Corpuscular Hgb Conc. 32.2 g/dL (32.0-36.0); Mean Corpuscular Volume 98.9 fL (80.0-100.0); Monocytes # (auto) 0.3 uL; Monocytes % (auto) 5.8 % (0.0-12.0); Neutrophils # (auto) 4.8 uL; Neutrophils % (auto) 82.3 % (37.0-80.0); Nucleated Red Blood Cells % 0.2 %; Platelet Count (auto) 197 10^3/uL (140-450); Red Blood Cells 3.01 10^6/uL (4.5-5.90); Red Cell Distribution Width 17.2 % (11.8-14.3); White Blood Cell 5.8 10^3/uL (4.4-10.8)
[2017-04-27] MEDS ORDERED: LEVOFLOXACIN 250 MG TAB PO SCH (10:00)
[2017-04-27] MEDS ORDERED: predniSONE 20 MG TAB PO SCH ×2 (10:00)
[2017-04-27] MEDS: PANTOPRAZOLE 40 MG/10 ML VIAL IV SCH (10:31)
[2017-04-27] MEDS: POTASSIUM CHL 20 Meq TABLET PO SCH (10:31)
[2017-04-27] MEDS: MULTIPLE VITAMIN TAB PO SCH (10:32)
[2017-04-27] MEDS: FAMOTIDINE 20 MG TAB PO SCH (10:32)
[2017-04-27] MEDS: GABAPENTIN 300 MG CAP PO SCH (10:34)
[2017-04-27 13:19] VITALS: BP 142/78
[2017-04-27 17:22] VITALS: BP 143/76
[2017-04-27 18:24] VITALS: BP 143/76
== END 2017-04-27 19:17 | disposition home or self-care (01) | DRG 871 ==
LOC: EDBD 17:08 → EDUNIT# 17:08 → ER 17:08 → TELE 17:09 → TELE-WESTW 04-19 00:52
PROVIDERS: ADMIT Emergency Medicine; ATTEND Internal Medicine Pulmonary Disease
PROC: 30233N1 Transfusion of Nonautologous Red Blood Cells into Peripheral Vein, Percutaneous Approach (ICD-10-PCS; principal; 2017-04-25)
DX: A41.9 Sepsis, unspecified organism (principal); N17.0 Acute kidney failure with tubular necrosis; E44.0 Moderate protein-calorie malnutrition; J18.1 Lobar pneumonia, unspecified organism; K91.2 Postsurgical malabsorption, not elsewhere classified; D69.6 Thrombocytopenia, unspecified; E83.42 Hypomagnesemia; D59.1 Other autoimmune hemolytic anemias; E87.8 Other disorders of electrolyte and fluid balance, not elsewhere classified; D52.9 Folate deficiency anemia, unspecified; J45.901 Unspecified asthma with (acute) exacerbation; N39.0 Urinary tract infection, site not specified; Z68.1 Body mass index [BMI] 19.9 or less, adult; N18.3 Chronic kidney disease, stage 3 (moderate); E83.51 Hypocalcemia; R07.89 Other chest pain; I51.7 Cardiomegaly; J98.09 Other diseases of bronchus, not elsewhere classified; E87.6 Hypokalemia; E86.0 Dehydration; D53.9 Nutritional anemia, unspecified; I70.8 Atherosclerosis of other arteries; D72.819 Decreased white blood cell count, unspecified; F12.90 Cannabis use, unspecified, uncomplicated; K21.9 Gastro-esophageal reflux disease without esophagitis; R77.1 Abnormality of globulin; F41.9 Anxiety disorder, unspecified; Z79.899 Other long term (current) drug therapy; Z71.89 Other specified counseling; Z71.3 Dietary counseling and surveillance
CPT/HCPCS: 36415; 36600; 71045; 71046; 74176; 76775; 80048; 80053; 80076; 81001; 82270; 82306; 82570; 82607; 82728; 82746; 82805; 83010; 83540; 83550; 83605; 83615; 83735; 83970; 84100; 84300; 84436; 84443; 84550; 85014; 85018; 85025; 85045; 85610; 85652; 86038; 86703; 86850; 86880; 86900; 86901; 86920; 87040; 87086; 87400; 93005; 93306; 94640; 96361; 96374; 96375; C9113

== ENCOUNTER 2017-12-07 06:57 | Inpatient (IN) | payer OTHER, MEDICAID ==
[~2017-12-07] VITALS: Ht 167.6 cm; Wt 55.9 kg
[~2017-12-07 06:57] MED LIST changes: -PANT40TA2 PO; -SODI650T PO
[2017-12-07] MEDS ORDERED: SODIUM CHLORIDE 0.9% 1,000 ML IV ONE ×2 (07:36)
[2017-12-07] MEDS ORDERED: ONDANSETRON HCL 4 MG/2 ML VIAL IV ONE (07:45)
[2017-12-07] MEDS ORDERED: MORPHINE SULFATE 4 MG/ML SYR/VIAL IV ONE (07:45)
[2017-12-07] MEDS ORDERED: KETOROLAC TROMETH 30 MG/ML 1ML VIAL IV ONE (08:45)
[2017-12-07 08:52] LABS: Bilirubin, Total 0.4 mg/dL (0.2-1.0); Calcium 8.2 mg/dL (8.5-10.1); Potassium 4.3 mmol/L (3.5-5.1); Total Protein 7.9 g/dL (6.4-8.2)
[2017-12-07] MEDS ORDERED: SODIUM CHLORIDE 0.9% 1,000 ML IV SCH (09:08)
[2017-12-07] MEDS ORDERED: TEMAZEPAM 15 MG CAP PO PRN (09:15)
[2017-12-07] MEDS ORDERED: PIPERACILLIN-TAZOB 3.375GM 100 ML IV ONE ×2 (09:15→12:00)
[2017-12-07] MEDS ORDERED: MORPHINE SULFATE 4 MG/ML SYR/VIAL IV PRN (09:15)
[2017-12-07] MEDS ORDERED: ACETAMINOPHEN 500 MG TAB PO PRN (09:15)
[2017-12-07] MEDS ORDERED: NITROGLYCERIN 0.4 MG SL TAB SL PRN (09:15)
[2017-12-07] MEDS ORDERED: LORazepam 0.5 MG TAB PO PRN (09:15)
[2017-12-07] MEDS ORDERED: VANCOMYCIN 1GM/250ML 250 ML IV ONE (09:15)
[2017-12-07 09:51] LABS: Basophils # (auto) 0 uL; Eosinophils # (auto) 0.3 uL; Monocytes # (auto) 0.3 uL
[2017-12-07 09:53] LABS: Basophils % (auto) 0.5 % (0.0-2.0); Eosinophils % (auto) 4.9 % (0.0-7.0); Hematocrit 29.6 % (41.0-53.0); Hemoglobin 8.8 g/dL (13.5-17.5); Lymphocytes # (auto) 1.3 uL; Lymphocytes % (auto) 22.3 % (10.0-50.0); Mean Corpuscular Hemoglobin 31.3 pg (28.0-32.0); Mean Corpuscular Hgb Conc. 29.6 g/dL (32.0-36.0); Monocytes % (auto) 4.5 % (0.0-12.0); Neutrophils # (auto) 3.9 uL; Neutrophils % (auto) 67.8 % (37.0-80.0); Nucleated Red Blood Cells % 0.1 %; Platelet Count (auto) 137 10^3/uL (140-450); Red Cell Distribution Width 22.5 % (11.8-14.3); White Blood Cell 5.7 10^3/uL (4.4-10.8)
[2017-12-07 09:54] LABS: Mean Corpuscular Volume 105.7 fL (80.0-100.0)
[2017-12-07 10:04] LABS: CRP High Sensitivity 0.15 mg/dL (< 0.3)
[2017-12-07] MEDS: cefTRIAXone 1GM/10ml IVPUSH 10 ML IV SCH (10:32)
[2017-12-07] MEDS: PANTOPRAZOLE 40 MG/10 ML VIAL IV SCH (10:33)
[2017-12-07] MEDS ORDERED: SODIUM BICARBONATE 8.4 % INJ 50ML VIAL IV ONE ×2 (10:45→21:30)
[2017-12-07] MEDS ORDERED: SODIUM BICARBONATE 50ML VIAL 50 ML in D5W/SOD CHL 0.45% 1,000 ML IV SCH (10:45)
[2017-12-07] MEDS: GABAPENTIN 300 MG CAP PO SCH (11:14)
[2017-12-07 11:22] LABS: Hematocrit 31.3 % (41.0-53.0); Hemoglobin 9.5 g/dL (13.5-17.5)
[2017-12-07 11:58] LABS: Urine Bacteria NONE SEEN /hpf (None Seen); Urine Blood 2+ /uL (Negative); Urine Mucus FEW (None Seen); Urine Specific Gravity 1.007 (1.001-1.035); Urine WBC 1 /hpf (0 - 3)
[2017-12-07 12:14] LABS: INR 1.13 (0.9-1.15); Partial Thromboplastin Time 25.8 sec (23.78-33.04)
[2017-12-07] MEDS: METOCLOPRAMIDE HCL 10 MG TAB PO SCH ×2 (13:41→22:29)
[2017-12-07] MEDS: MORPHINE SULFATE 4 MG/ML SYR/VIAL IV PRN (13:55)
[2017-12-07] MEDS: SODIUM BICARBONATE 50ML VIAL 150 ML in D5W 5% 1,000 ML IV SCH ×2 (15:46→23:44)
[2017-12-07 16:12] LABS: BUN/Creatinine Ratio 6.3; Calcium 7.8 mg/dL (8.5-10.1)
[2017-12-07] MEDS: metroNIDAZOLE 500MG/100ML 100 ML IV SCH ×2 (18:27→23:45)
[2017-12-07 18:37] LABS: Hematocrit 28.7 % (41.0-53.0); Hemoglobin 9.1 g/dL (13.5-17.5)
[2017-12-08 01:08] LABS: Hemoglobin 7.6 g/dL (13.5-17.5)
[2017-12-08 01:10] LABS: Hematocrit 23.6 % (41.0-53.0)
[2017-12-08] MEDS: MORPHINE SULFATE 4 MG/ML SYR/VIAL IV PRN ×4 (06:27→19:49)
[2017-12-08] MEDS: METOCLOPRAMIDE HCL 10 MG TAB PO SCH ×3 (06:27→22:06)
[2017-12-08] MEDS: metroNIDAZOLE 500MG/100ML 100 ML IV SCH ×4 (06:27→23:56)
[2017-12-08 07:10] LABS: Basophils # (auto) 0 uL; Eosinophils # (auto) 0.3 uL; Hemoglobin 7.3 g/dL (13.5-17.5); Monocytes # (auto) 0.3 uL; Monocytes % (auto) 5.7 % (0.0-12.0); White Blood Cell 4.5 10^3/uL (4.4-10.8)
[2017-12-08 07:14] LABS: Eosinophils % (auto) 5.8 % (0.0-7.0); Hematocrit 21.4 % (41.0-53.0); Lymphocytes # (auto) 0.5 uL; Lymphocytes % (auto) 10.8 % (10.0-50.0); Mean Corpuscular Hemoglobin 32.4 pg (28.0-32.0); Mean Corpuscular Hgb Conc. 34.3 g/dL (32.0-36.0); Mean Corpuscular Volume 94.6 fL (80.0-100.0); Neutrophils # (auto) 3.4 uL; Neutrophils % (auto) 76.7 % (37.0-80.0); Platelet Count (auto) 133 10^3/uL (140-450); Red Blood Cells 2.26 10^6/uL (4.5-5.90)
[2017-12-08 07:24] LABS: Albumin 2.4 g/dL (3.4-5.0); BUN/Creatinine Ratio 6.5; Bilirubin, Total 0.4 mg/dL (0.2-1.0); Calcium 6.6 mg/dL (8.5-10.1); Total Protein 5.9 g/dL (6.4-8.2)
[2017-12-08 07:32] LABS: Cholesterol < 50 mg/dL (< 200); HDL Cholesterol 24 mg/dL (40-59); LDL Cholesterol 19 mg/dL (< 100); Potassium 2.9 mmol/L (3.5-5.1); Triglycerides 59 mg/dL (< 150)
[2017-12-08 07:38] LABS: Red Cell Distribution Width 20.5 % (11.8-14.3)
[2017-12-08] MEDS: PANTOPRAZOLE 40 MG/10 ML VIAL IV SCH (07:58)
[2017-12-08] MEDS: POTASSIUM CHL 20MEQ/100ML 100 ML IV SCH ×3 (07:58→10:54)
[2017-12-08] MEDS: GABAPENTIN 300 MG CAP PO SCH (07:58)
[2017-12-08] MEDS: cefTRIAXone 1GM/10ml IVPUSH 10 ML IV SCH (07:58)
[2017-12-08] MEDS ORDERED: POTASSIUM CHL 20MEQ/100ML 100 ML IV SCH (09:00)
[2017-12-08] MEDS ORDERED: POTASSIUM CHL 20 Meq TABLET PO ONE (09:00)
[2017-12-08] MEDS ORDERED: LIDOCAINE 2% (LOCAL ANESTH.) PF 5ml SDV ONE ×2 (09:09→09:13)
[2017-12-08] MEDS ORDERED: IOHEXOL 350 MG/ML 100ML IJ ONE (09:09)
[2017-12-08] MEDS ORDERED: fentaNYL CITRATE 100 MCG/2 ML VL ONE (09:54)
[2017-12-08] MEDS ORDERED: MIDAZOLAM HCL 1MG/1ML-2 ML VIAL ONE (09:54)
[2017-12-08] MEDS: SOD CHL 0.45% 1,000 ML IV SCH ×2 (10:53→22:06)
[2017-12-08 17:18] LABS: Hemoglobin 8.3 g/dL (13.5-17.5)
[2017-12-08 17:19] LABS: Hematocrit 25.4 % (41.0-53.0)
[2017-12-08] MEDS: ONDANSETRON HCL 4 MG/2 ML VIAL IV PRN (19:49)
[2017-12-09] VITALS (8 sets, daily range): BP systolic 140–149; BP diastolic 72–81
[2017-12-09] MEDS: MORPHINE SULFATE 4 MG/ML SYR/VIAL IV PRN ×5 (03:24→23:35)
[2017-12-09] MEDS: ONDANSETRON HCL 4 MG/2 ML VIAL IV PRN ×2 (03:24→18:41)
[2017-12-09] MEDS: metroNIDAZOLE 500MG/100ML 100 ML IV SCH ×4 (06:20→23:35)
[2017-12-09] MEDS: METOCLOPRAMIDE HCL 10 MG TAB PO SCH ×3 (06:20→21:45)
[2017-12-09 08:02] LABS: Basophils # (auto) 0.1 uL; Basophils % (auto) 0.8 % (0.0-2.0); Eosinophils # (auto) 0.2 uL; Eosinophils % (auto) 3.6 % (0.0-7.0); Hematocrit 25.8 % (41.0-53.0); Hemoglobin 8.5 g/dL (13.5-17.5); Lymphocytes # (auto) 0.8 uL; Mean Corpuscular Hemoglobin 32.6 pg (28.0-32.0); Mean Corpuscular Hgb Conc. 33.2 g/dL (32.0-36.0); Mean Corpuscular Volume 98.4 fL (80.0-100.0); Monocytes # (auto) 0.2 uL; Monocytes % (auto) 3.7 % (0.0-12.0); Neutrophils # (auto) 5.3 uL; Neutrophils % (auto) 79.9 % (37.0-80.0); Nucleated Red Blood Cells % 0.1 %; Platelet Count (auto) 152 10^3/uL (140-450); Red Blood Cells 2.62 10^6/uL (4.5-5.90); White Blood Cell 6.6 10^3/uL (4.4-10.8)
[2017-12-09 08:07] LABS: Red Cell Distribution Width 21.5 % (11.8-14.3)
[2017-12-09 08:17] LABS: Magnesium 1.4 mg/dL (1.6-2.6)
[2017-12-09 08:28] LABS: BUN/Creatinine Ratio 6.2; Phosphorus 2.7 mg/dL (2.5-4.90); Potassium 4.1 mmol/L (3.5-5.1); Uric Acid 5.1 mg/dL (3.5-7.2)
[2017-12-09] MEDS: GABAPENTIN 300 MG CAP PO SCH (09:45)
[2017-12-09] MEDS: cefTRIAXone 1GM/10ml IVPUSH 10 ML IV SCH (09:46)
[2017-12-09] MEDS: PANTOPRAZOLE 40 MG/10 ML VIAL IV SCH (09:47)
[2017-12-09] MEDS: SOD CHL 0.45% 1,000 ML IV SCH (11:41)
[2017-12-09] MEDS: MAGNESIUM SULFATE 1GM/100ML 100 ML IV SCH ×2 (16:16→17:14)
[2017-12-09] MEDS: Ensure Enlive Vanilla 8oz Bottle PO SCH (18:48)
[2017-12-10] MEDS: SOD CHL 0.45% 1,000 ML IV SCH ×2 (01:40→13:33)
[2017-12-10 05:16] VITALS: BP 155/79
[2017-12-10] MEDS: metroNIDAZOLE 500MG/100ML 100 ML IV SCH ×2 (05:46→11:29)
[2017-12-10] MEDS: METOCLOPRAMIDE HCL 10 MG TAB PO SCH ×3 (05:46→22:30)
[2017-12-10 06:37] LABS: Hematocrit 23.6 % (41.0-53.0); Hemoglobin 7.9 g/dL (13.5-17.5)
[2017-12-10] MEDS: MORPHINE SULFATE 4 MG/ML SYR/VIAL IV PRN ×4 (06:44→22:29)
[2017-12-10 07:02] LABS: BUN/Creatinine Ratio 5.9; Calcium 7.3 mg/dL (8.5-10.1); Magnesium 2.2 mg/dL (1.6-2.6); Potassium 3.9 mmol/L (3.5-5.1)
[2017-12-10] MEDS: Ensure Enlive Vanilla 8oz Bottle PO SCH ×3 (07:55→18:10)
[2017-12-10] MEDS ORDERED: SODIUM CHLORIDE 0.9% 1,000 ML IV ONE (08:30)
[2017-12-10 08:39] VITALS: BP 146/80
[2017-12-10] MEDS: PANTOPRAZOLE 40 MG/10 ML VIAL IV SCH (09:51)
[2017-12-10] MEDS: GABAPENTIN 300 MG CAP PO SCH (09:51)
[2017-12-10] MEDS: cefTRIAXone 1GM/10ml IVPUSH 10 ML IV SCH (09:52)
[2017-12-10] MEDS ORDERED: IOHEXOL 300 MG/ML 100ML BOTTLE IJ ONE (11:53)
[2017-12-10 13:40] VITALS: BP 147/78
[2017-12-10 17:09] VITALS: BP 142/69
[2017-12-10 22:00] VITALS: BP 152/70
[2017-12-11] MEDS: MORPHINE SULFATE 4 MG/ML SYR/VIAL IV PRN ×2 (03:59→08:58)
[2017-12-11] MEDS: SOD CHL 0.45% 1,000 ML IV SCH ×2 (04:07→17:00)
[2017-12-11 05:00] VITALS: BP 156/83
[2017-12-11 05:29] LABS: Hemoglobin 7.5 g/dL (13.5-17.5)
[2017-12-11 05:33] LABS: Hematocrit 22.1 % (41.0-53.0)
[2017-12-11 05:48] LABS: Calcium 7.3 mg/dL (8.5-10.1); Potassium 3.6 mmol/L (3.5-5.1)
[2017-12-11] MEDS: METOCLOPRAMIDE HCL 10 MG TAB PO SCH ×2 (06:56→13:54)
[2017-12-11] MEDS: Ensure Enlive Vanilla 8oz Bottle PO SCH ×2 (08:38→12:55)
[2017-12-11 09:03] VITALS: BP 152/83
[2017-12-11] MEDS: PANTOPRAZOLE 40 MG/10 ML VIAL IV SCH (10:12)
[2017-12-11] MEDS: GABAPENTIN 300 MG CAP PO SCH (10:12)
[2017-12-11 13:03] VITALS: BP 150/76
[2017-12-11 14:06] VITALS: BP 150/76
[2017-12-11 14:25] VITALS: BP 150/76
== END 2017-12-11 17:38 | disposition home health service (06) | DRG 693 ==
LOC: EDBD 06:57 → ER 07:10 → TELE 07:11 → TELE-WESTW 12-09 03:51 → UNDODISIN 12-11 16:34
PROVIDERS: ADMIT Internal Medicine; ATTEND Internal Medicine
PROC: 0T9430Z Drainage of Left Kidney Pelvis with Drainage Device, Percutaneous Approach (ICD-10-PCS; principal; 2017-12-08)
PROC: BT1F1ZZ Fluoroscopy of Left Kidney, Ureter and Bladder using Low Osmolar Contrast (ICD-10-PCS; 2017-12-08)
DX: N13.2 Hydronephrosis with renal and ureteral calculous obstruction (principal); K85.90 Acute pancreatitis without necrosis or infection, unspecified; K56.2 Volvulus; E87.2 Acidosis; R18.8 Other ascites; N17.9 Acute kidney failure, unspecified; E87.6 Hypokalemia; N13.9 Obstructive and reflux uropathy, unspecified; D50.0 Iron deficiency anemia secondary to blood loss (chronic); G89.4 Chronic pain syndrome; F12.10 Cannabis abuse, uncomplicated; D63.8 Anemia in other chronic diseases classified elsewhere; D69.6 Thrombocytopenia, unspecified; N18.3 Chronic kidney disease, stage 3 (moderate); Z82.3 Family history of stroke; Z90.49 Acquired absence of other specified parts of digestive tract
CPT/HCPCS: 36415; 36600; 51702; 71045; 74176; 76705; 76942; 80048; 80053; 80061; 81001; 82150; 82805; 83540; 83550; 83605; 83690; 83735; 84100; 84132; 84550; 85014; 85018; 85025; 85045; 85610; 85652; 85730; 86141; 86850; 86900; 86901; 87040; 87086; 93005; 96374; 96375; 99152; A6257; C1729; C9113; J0696; J1642; J1885; J2001; J2250; J2405; J2543; J3480; J3490

== ENCOUNTER 2019-02-12 17:19 | Inpatient (IN) | payer OTHER, MEDICAID ==
[~2019-02-12] VITALS: Ht 167.6 cm; Wt 53.1 kg
[~2019-02-12 17:19] MED LIST changes: +CAL025T PO; +FER325T PO; +PANT40T PO
[2019-02-12] MEDS ORDERED: IPRATROPIUM BROM 0.5 MG/2.5ML INH SOL NEB ONE (18:00)
[2019-02-12] MEDS ORDERED: ALBUTEROL SULF 2.5 MG/0.5ML(0.5%) NEB SOLN NEB ONE (18:00)
[2019-02-12] MEDS ORDERED: DEXTROSE 50% SYRINGE 50 ML IV ONE (18:17)
[2019-02-12 18:22] LABS: Basophils # (auto) 0 uL; Eosinophils # (auto) 0 uL; Lymphocytes # (auto) 0 uL; Monocytes # (auto) 0 uL; Neutrophils # (auto) 0.4 uL
[2019-02-12 18:24] LABS: Basophils % (auto) 0.1 % (0.0-2.0); Eosinophils % (auto) 0.4 % (0.0-7.0); Hematocrit 34.1 % (41.0-53.0); Hemoglobin 11.6 g/dL (13.5-17.5); Lymphocytes % (auto) 7.6 % (10.0-50.0); Mean Corpuscular Hemoglobin 31.3 pg (28.0-32.0); Mean Corpuscular Hgb Conc. 34.1 g/dL (32.0-36.0); Mean Corpuscular Volume 91.9 fL (80.0-100.0); Monocytes % (auto) 1.3 % (0.0-12.0); Neutrophils % (auto) 90.6 % (37.0-80.0); Nucleated Red Blood Cells % 2.4 %; Platelet Count (auto) 54 10^3/uL (140-450); Red Blood Cells 3.71 10^6/uL (4.5-5.90)
[2019-02-12] MEDS ORDERED: DEXTROSE (50%) 50ML SYRG IV ONE (18:30)
[2019-02-12 18:41] LABS: Albumin 2.2 g/dL (3.4-5.0); Anion Gap 11 (5-15); Blood Urea Nitrogen 36 mg/dL (7-18); Calcium 6.5 mg/dL (8.5-10.1); Chloride 129 mmol/L (98-107); Glucose 55 mg/dL (74-106); Magnesium 1.4 mg/dL (1.6-2.6); Potassium 3.1 mmol/L (3.5-5.1); Sodium 148 mmol/L (136-145); White Blood Cell 0.4 10^3/uL (4.4-10.8)
[2019-02-12 18:47] LABS: Alanine Aminotransferase 20 U/L (16-61); Alkaline Phosphatase 88 U/L (45-117); Aspartate Aminotransferase 17 U/L (15-37); Bilirubin, Total 0.7 mg/dL (0.2-1.0); GFR African American 23 mL/min; GFR Non-African American 19 mL/min; Total Protein 6.2 g/dL (6.4-8.2)
[2019-02-12 18:53] LABS: Carbon Dioxide 8 mmol/L (21-32)
[2019-02-12] MEDS ORDERED: POTASSIUM CHL 20 Meq TABLET PO ONE (19:15)
[2019-02-12] MEDS ORDERED: SODIUM BICARBONATE 8.4 % INJ 50ML VIAL IV ONE ×2 (19:15→19:30)
[2019-02-12 19:20] LABS: INR 1.62 (0.9-1.15); Partial Thromboplastin Time 37.2 sec (23.64-32.05)
[2019-02-12] MEDS ORDERED: SODIUM BICARBONATE 8.4% INJ 50ML SYRINGE ONE ×2 (19:23→19:58)
[2019-02-12] MEDS ORDERED: SODIUM CHLORIDE 0.9% 2,000 ML IV ONE (20:45)
[2019-02-12] MEDS ORDERED: DEXTROSE 10% 1,000 ML IV ONE (21:00)
[2019-02-12] MEDS ORDERED: LORazepam 2MG/ML-1ML VIAL IV ONE (21:15)
[2019-02-12] MEDS: ACCU-CHEK COMFORT CURVE STRIP VI SCH ×2 (22:14→23:02)
[2019-02-12] MEDS ORDERED: ACCU-CHEK COMFORT CURVE STRIP VI SCH (22:30)
[2019-02-12] MEDS ORDERED: ACETAMINOPHEN 325 MG TAB PO PRN (22:30)
[2019-02-12] MEDS ORDERED: DEXTROSE (50%) 50ML SYRG IV PRN (22:30)
[2019-02-12] MEDS ORDERED: HYDROcodone-ACET 5/325MG TAB PO PRN (22:30)
[2019-02-12] MEDS ORDERED: MORPHINE SULFATE 4 MG/ML SYR/VIAL IV PRN (22:30)
[2019-02-12] MEDS ORDERED: LORazepam 0.5 MG TAB PO PRN (22:30)
[2019-02-12] MEDS ORDERED: DOCUSATE SOD 100 MG CAP PO PRN (22:30)
[2019-02-12] MEDS ORDERED: ONDANSETRON HCL 4 MG/2 ML VIAL IV PRN (22:30)
[2019-02-12] MEDS ORDERED: SODIUM CHLORIDE 0.9% 1,000 ML IV ONE (22:30)
[2019-02-12] MEDS: PANTOPRAZOLE 40 MG/10 ML VIAL INJ IV SCH (23:08)
[2019-02-13] VITALS (9 sets, daily range): BP systolic 80–106; BP diastolic 42–66
[2019-02-13] MEDS: ACCU-CHEK COMFORT CURVE STRIP VI SCH ×23 (00:25→23:45)
[2019-02-13] MEDS: SODIUM CHLORIDE 0.9% 1,000 ML IV SCH ×2 (00:25→15:00)
[2019-02-13] MEDS ORDERED: MORPHINE SULF INJ 2 MG/ML SYRINGE 1ML IV PRN (07:00)
[2019-02-13 07:38] LABS: Hemoglobin 8.7 g/dL (13.5-17.5); Red Blood Cells 2.76 10^6/uL (4.5-5.90); White Blood Cell 2.4 10^3/uL (4.4-10.8)
[2019-02-13 07:40] LABS: Hematocrit 24.8 % (41.0-53.0); Mean Corpuscular Hemoglobin 31.7 pg (28.0-32.0); Mean Corpuscular Hgb Conc. 35.3 g/dL (32.0-36.0); Mean Corpuscular Volume 89.7 fL (80.0-100.0); Platelet Count (auto) 47 10^3/uL (140-450); Red Cell Distribution Width 18.4 % (11.8-14.3)
[2019-02-13 07:45] LABS: Basophils % (manual) 0 (0.0-2.0); Blast Cells 0; Eosinophils % (manual) 0 (0-7); Myelocytes % 0; Promyelocytes % 0; Reactive Lymphocytes 0
[2019-02-13 07:59] LABS: Potassium 3.2 mmol/L (3.5-5.1)
[2019-02-13 08:08] LABS: Band Neutrophils % (manual) 8; Lymphocytes % (manual) 1 (10.0-50.0); Metamyelocytes % 3; Monocytes % (manual) 1 (0-12)
[2019-02-13 08:13] LABS: Calcium 5.8 mg/dL (8.5-10.1)
[2019-02-13] MEDS: PANTOPRAZOLE 40 MG/10 ML VIAL INJ IV SCH ×2 (11:15→23:21)
[2019-02-13] MEDS ORDERED: DEXTROSE 10% 1,000 ML IV ONE (13:00)
[2019-02-13] MEDS ORDERED: DAPTOmycin 0 MG in SODIUM CHL 0.9% 50 ML IV SCH (13:45)
[2019-02-13 14:56] LABS: Hemoglobin 8.4 g/dL (13.5-17.5); Platelet Count (auto) 41 10^3/uL (140-450)
[2019-02-13 14:58] LABS: Hematocrit 25.3 % (41.0-53.0); Mean Corpuscular Hemoglobin 31.1 pg (28.0-32.0); Mean Corpuscular Volume 94.4 fL (80.0-100.0); Red Blood Cells 2.68 10^6/uL (4.5-5.90); Red Cell Distribution Width 19.6 % (11.8-14.3)
[2019-02-13 15:12] LABS: BUN/Creatinine Ratio 11.1
[2019-02-13 15:18] LABS: Basophils % (manual) 0 (0.0-2.0); Blast Cells 0; Metamyelocytes % 0; Myelocytes % 0; Promyelocytes % 0; Reactive Lymphocytes 0
[2019-02-13 15:23] LABS: Calcium 5.7 mg/dL (8.5-10.1)
[2019-02-13] MEDS ORDERED: DAPTOmycin 250 MG in SODIUM CHL 0.9% 50 ML IV SCH (15:30)
[2019-02-13] MEDS ORDERED: CALCIUM CHL 100MG/ML 1,000 MG in D5W 5% 100 ML IV ONE (15:45)
[2019-02-13] MEDS ORDERED: SODIUM BICARBONATE 50ML VIAL 75 ML in D5W 5% 1,000 ML IV SCH ×2 (15:45→16:30)
[2019-02-13] MEDS ORDERED: POTASSIUM EFFERVESENT TAB 25 MEQ PO ONE (15:45)
[2019-02-13] MEDS: PIPERACILLIN-TAZOB 2.25GM 50 ML IV SCH ×2 (16:00→22:22)
[2019-02-13] MEDS: MAGNESIUM OXIDE 400 MG TAB PO SCH ×2 (16:00→22:52)
[2019-02-13 16:27] LABS: Band Neutrophils % (manual) 17; Eosinophils % (manual) 1 (0-7); Lymphocytes % (manual) 2 (10.0-50.0); Monocytes % (manual) 7 (0-12)
[2019-02-13] MEDS: SODIUM BICARBONATE 650 MG TAB PO SCH ×3 (18:13→22:51)
[2019-02-13 18:39] LABS: Lactic Acid w/Reflex 3.5 mmol/L (0.4-2.0)
[2019-02-13] MEDS ORDERED: SUCCINYLCHOLINE CHLORIDE 20 MG/ML 10ML VIAL IV ONE (20:16)
[2019-02-13] MEDS ORDERED: ETOMIDATE (2MG/ML) 20ML VIAL IV ONE (20:16)
[2019-02-13] MEDS ORDERED: MIDAZOLAM DRIP 50 mg/50mL 50 ML IV ONE (20:22)
[2019-02-13] MEDS ORDERED: NOREPINEPHRINE 8 MG/250ML KIT 250 ML IV SCH (20:40)
[2019-02-13] MEDS ORDERED: FUROSEMIDE 40 MG/4 ML VIAL IV ONE (20:45)
[2019-02-13] MEDS ORDERED: VANCOMYCIN PER PHARMACY 0 MG IV SCH (20:45)
[2019-02-13] MEDS ORDERED: VANCOMYCIN 1GM/250ML 250 ML IV SCH (20:45)
[2019-02-13] MEDS ORDERED: PIPERACILLIN-TAZOB 3.375GM 100 ML IV SCH (20:45)
[2019-02-13] MEDS ORDERED: NOREPINEPHRINE 8 MG/250ML KIT 250 ML IV ONE (20:48)
[2019-02-13] MEDS: MIDAZOLAM DRIP 50 mg/50mL 50 ML IV SCH (21:15)
[2019-02-13] MEDS: NOREPINEPHRINE 8 MG/250ML KIT 250 ML IV SCH (21:15)
[2019-02-13] MEDS ORDERED: VANCOMYCIN 1GM/250ML 250 ML IV ONE (22:00)
[2019-02-14] VITALS (14 sets, daily range): BP systolic 81–107; BP diastolic 43–62
[2019-02-14 00:06] LABS: Lactic Acid w/Reflex 4.3 mmol/L (0.4-2.0)
[2019-02-14] MEDS: ACCU-CHEK COMFORT CURVE STRIP VI SCH ×23 (00:30→23:28)
[2019-02-14] MEDS: EPINEPHrine HCL 250 ML IV SCH ×2 (00:49→23:54)
[2019-02-14] MEDS: PIPERACILLIN-TAZOB 2.25GM 50 ML IV SCH ×4 (03:21→20:04)
[2019-02-14] MEDS ORDERED: DEXTROSE 10% 1,000 ML IV ONE (04:22)
[2019-02-14] MEDS: VASOPRESSIN 50 UNITS in D5W 5% 247.5 ML IV SCH ×2 (05:30→07:49)
[2019-02-14] MEDS: SODIUM BICARBONATE 650 MG TAB PO SCH ×4 (06:00→22:25)
[2019-02-14] MEDS: DEXTROSE 10% 1,000 ML IV SCH ×2 (07:49→22:24)
[2019-02-14] MEDS: SODIUM CHLORIDE 0.9% 1,000 ML IV SCH (07:57)
[2019-02-14] MEDS: SODIUM BICARBONATE 50ML VIAL 75 ML in D5W 5% 1,000 ML IV SCH ×2 (08:00→19:00)
[2019-02-14 08:03] LABS: Hemoglobin 9.8 g/dL (13.5-17.5); Mean Corpuscular Hemoglobin 31.4 pg (28.0-32.0); Mean Corpuscular Hgb Conc. 33.8 g/dL (32.0-36.0); Mean Corpuscular Volume 92.9 fL (80.0-100.0); Red Blood Cells 3.12 10^6/uL (4.5-5.90)
[2019-02-14 08:16] LABS: Platelet Count (auto) 6 10^3/uL (140-450); White Blood Cell 1.6 10^3/uL (4.4-10.8)
[2019-02-14 08:18] LABS: Basophils % (manual) 0 (0.0-2.0); Blast Cells 0; Eosinophils % (manual) 0 (0-7); Promyelocytes % 0
[2019-02-14 08:26] LABS: Albumin 1.4 g/dL (3.4-5.0)
[2019-02-14 08:31] LABS: BUN/Creatinine Ratio 11.3; Total Protein 4.5 g/dL (6.4-8.2)
[2019-02-14 08:50] LABS: Calcium 5.7 mg/dL (8.5-10.1); Potassium 2.7 mmol/L (3.5-5.1)
[2019-02-14] MEDS: POTASSIUM CHL 20MEQ/100ML 100 ML IV SCH ×2 (09:16→11:21)
[2019-02-14 09:19] LABS: Alcohol, Urine < 3.0 mg/dL (0-5); Amphetamine Screen, Urine POSITIVE (NEGATIVE); Barbiturate Scree,Urine NEGATIVE (NEGATIVE); Benzodiazephine Screen, Urine POSITIVE (NEGATIVE); Cannabinoid Screen, Urine NEGATIVE (NEGATIVE); Cocaine Screen, Urine NEGATIVE (NEGATIVE); Phencyclidine Screen, Urine NEGATIVE (NEGATIVE)
[2019-02-14 09:26] LABS: Urine Bacteria NONE SEEN /hpf (None Seen); Urine Blood 3+ /uL (Negative); Urine Specific Gravity 1.009 (1.001-1.035); Urine WBC 110 /hpf (0 - 3); Urine WBC Clumps PRESENT /hpf (None Seen)
[2019-02-14 09:27] LABS: Opiate Scree,Urine NEGATIVE (NEGATIVE)
[2019-02-14] MEDS: MAGNESIUM OXIDE 400 MG TAB PO SCH ×2 (09:28→22:25)
[2019-02-14] MEDS ORDERED: CALCIUM GLUC 4.65meq/50ml D5AE 50 ML IV ONE (09:30)
--- NOTE | 2019-02-14 09:30 | NUR ---
WOUND CARE NOTE: ADDED PATIENT TO [facility] MONITORING FOR LOW SAL SCORE 10, INTUBATION STATUS. [facility] DIAGNOSIS OF HYPOGLYCEMIA, SEVERE DEHYDRATION, CKD-STAGE IV. PATIENT IS INTUBATED, SEDATED. PATIENT NOTED TO BE VERY THIN, WEIGHING ONLY 44 KG. VERY PROMINENT BONY PROMINENCES. ORDERED SPECIALTY AIR BED. PATIENT TO BE PLACED, PENDING DELIVERY BY [facility]. ETA 1900, PER [facility] REP. PATIENT IS WOUND FREE AT THIS TIME. SKIN/WOUND CARE PLAN IMPLEMENTED. RECOMMEND: FREQUENT TURN SCHEDULE Q 2 HOURS, PRN CONDITION PERMITS, WITH PRESSURE REDISTRIBUTION USING PILLOWS/WEDGES, BID/PRN APPLICATION WITH MOISTURE BARRIER CREAM, OPTIFOAM GENTLE SACRAL DRESSING PREVENTATIVE, HAILEY FOAM BOOTS TO BILATERAL FEET/HEELS, SPECIALTY AIR BED, DIETARY CONSULT FOR LOW SAL, CONTINUED MONITORING BY WOUND CARE TEAM.
[2019-02-14 09:37] LABS: Band Neutrophils % (manual) 14; Lymphocytes % (manual) 27 (10.0-50.0); Metamyelocytes % 6; Monocytes % (manual) 21 (0-12); Myelocytes % 2; Reactive Lymphocytes 3
[2019-02-14] MEDS: PANTOPRAZOLE 40 MG/10 ML VIAL INJ IV SCH ×2 (10:24→22:25)
[2019-02-14 10:34] LABS: INR 2.15 (0.9-1.15); Partial Thromboplastin Time 65.5 sec (23.64-32.05)
[2019-02-14] MEDS ORDERED: POTASSIUM CHL 20MEQ/100ML 100 ML IV SCH (11:00)
[2019-02-14] MEDS: FILGRASTIM (TBO) 300 MCG/0.5 ML SYRG SC SCH (11:45)
[2019-02-14] MEDS ORDERED: LEVOFLOXACIN 250MG 50 ML IV SCH (12:45)
[2019-02-14] MEDS ORDERED: LEVOFLOXACIN 750MG 150 ML IV ONE (13:00)
[2019-02-14 17:08] LABS: BUN/Creatinine Ratio 11.4; Potassium 3.2 mmol/L (3.5-5.1)
[2019-02-14 17:20] LABS: Calcium 5.3 mg/dL (8.5-10.1)
[2019-02-14] MEDS ORDERED: VANCOMYCIN PER PHARMACY 0 MG IV SCH (18:45)
[2019-02-14] MEDS: OCTREOTIDE ACETATE 500 MCG in SODIUM CHL 0.9% 99 ML IV SCH (18:45)
[2019-02-14] MEDS ORDERED: OCTREOTIDE ACETATE 100 MCG in SODIUM CHL 0.9% 50 ML IV ONE (18:45)
[2019-02-14] MEDS: MIDAZOLAM DRIP 50 mg/50mL 50 ML IV SCH (20:44)
[2019-02-14] MEDS: NOREPINEPHRINE 8 MG/250ML KIT 250 ML IV SCH (20:45)
[2019-02-14] MEDS ORDERED: SODIUM BICARBONATE 8.4% INJ 50ML SYRINGE ONE (21:03)
[2019-02-15] VITALS (77 sets, daily range): BP systolic 67–139; BP diastolic 31–81
[2019-02-15] MEDS: ACCU-CHEK COMFORT CURVE STRIP VI SCH ×13 (00:19→13:00)
[2019-02-15] MEDS: SODIUM CHLORIDE 0.9% 1,000 ML IV SCH (00:31)
--- NOTE | 2019-02-15 01:55 | NUR ---
REPORT REPORT RECEIVED FROM AYESHA LAGOS FROM ER. HE TOLD THAT 2 UNITS PLATELETS WERE GIVEN TO THE PATIENT 0N 02/14/19 BUT I COULDN'T FIND IT GIVEN. CLARIFIED WITH JESUS IN BLOOD BANK. HE TOLD THAT I UNIT PLATELET IS GIVEN ON 02/14/19 AND WILL ORDER SECOND UNIT NOW ORDERED.
--- NOTE | 2019-02-15 02:20 | NUR ---
Admit to ICU from ER on vent LEO LAINEZ admitted to ICU via bed on engine monitor, intubated and being bagged by Respiratory Therapist. Patient transferred to special mattress, connected to mechanical ventilator by therapist, KELTON at bedside. Patient connected to ICU monitoring, weighed by bedscale.. NOTE:
[2019-02-15] MEDS: PIPERACILLIN-TAZOB 2.25GM 50 ML IV SCH ×3 (03:12→14:04)
[2019-02-15] MEDS: NOREPINEPHRINE 8 MG/250ML KIT 250 ML IV SCH (05:07)
[2019-02-15] MEDS: OCTREOTIDE ACETATE 500 MCG in SODIUM CHL 0.9% 99 ML IV SCH ×2 (05:08→14:45)
--- NOTE | 2019-02-15 06:30 | NUR ---
CONSENT BLOOD TRANSFUSION CONSENT TAKEN FROM PATIENT'S DAUGHTER NICOLE ([phone]). GRETCHEN LAGOS WITNESSED IT.
[2019-02-15] MEDS: MIDAZOLAM DRIP 50 mg/50mL 50 ML IV SCH (06:41)
[2019-02-15] MEDS: SODIUM BICARBONATE 650 MG TAB PO SCH ×3 (06:42→18:00)
[2019-02-15] MEDS: SODIUM BICARBONATE 50ML VIAL 75 ML in D5W 5% 1,000 ML IV SCH (07:00)
--- NOTE | 2019-02-15 07:05 | NUR ---
Platelet transfusion is started.
--- NOTE | 2019-02-15 07:15 | NUR ---
REPORT IS GIVEN TO ZEUS LAGOS.
[2019-02-15 07:24] LABS: Hematocrit 27.5 % (41.0-53.0); Hemoglobin 9.2 g/dL (13.5-17.5); White Blood Cell 2.3 10^3/uL (4.4-10.8)
[2019-02-15 07:27] LABS: Mean Corpuscular Hemoglobin 31.1 pg (28.0-32.0); Mean Corpuscular Hgb Conc. 33.6 g/dL (32.0-36.0); Mean Corpuscular Volume 92.8 fL (80.0-100.0); Red Blood Cells 2.97 10^6/uL (4.5-5.90); Red Cell Distribution Width 19.6 % (11.8-14.3)
--- NOTE | 2019-02-15 07:30 | NUR ---
OPENING Report received from Angela LAGOS. Care initiated and initial assessment completed.
[2019-02-15 07:38] LABS: % Iron Saturation 109.8 % (20-55); Potassium 3.1 mmol/L (3.5-5.1)
[2019-02-15 07:39] LABS: BUN/Creatinine Ratio 11.3
[2019-02-15 07:46] LABS: Basophils % (manual) 0 (0.0-2.0); Blast Cells 0; Myelocytes % 0; Platelet Count (auto) 4 10^3/uL (140-450); Promyelocytes % 0; Reactive Lymphocytes 0
--- NOTE | 2019-02-15 07:55 | NUR ---
CRITICAL LABS Critical labs called into RN in unit, reported to me primary RN. Will alert MD.
--- NOTE | 2019-02-15 08:14 | NUR ---
PAGED HOSPITALIST Paged hospitalist to report critical labs.
[2019-02-15 08:18] LABS: INR 2.62 (0.9-1.15)
[2019-02-15 08:22] LABS: Partial Thromboplastin Time 109.9 sec (23.64-32.05)
--- NOTE | 2019-02-15 08:38 | NUR ---
WALKER QUINONEZ Spoke to Dr. Goyo sanches to report critical value.
--- NOTE | 2019-02-15 08:39 | NUR ---
REPEAT PAGED HOSPITALIST
--- NOTE | 2019-02-15 08:41 | NUR ---
SPOKE TO MD Spoke to Dr. Morris. Reported critical platelet and PTT. Ordered one platelet, read back and verified.
[2019-02-15 08:50] LABS: Ferritin 1499.2 ng/mL (10-322)
[2019-02-15 08:51] LABS: Folate (Folic Acid) 7.27 ng/mL (5.38-24)
[2019-02-15 09:28] LABS: Band Neutrophils % (manual) 9; Eosinophils % (manual) 1 (0-7); Lymphocytes % (manual) 11 (10.0-50.0); Metamyelocytes % 1; Monocytes % (manual) 41 (0-12)
[2019-02-15] MEDS ORDERED: LEVOFLOXACIN 500MG 100 ML IV SCH (10:00)
[2019-02-15] MEDS: PANTOPRAZOLE 40 MG/10 ML VIAL INJ IV SCH (10:22)
[2019-02-15] MEDS: FILGRASTIM (TBO) 300 MCG/0.5 ML SYRG SC SCH (10:23)
[2019-02-15] MEDS ORDERED: CALCIUM GLUC 4.65meq/50ml D5AE 50 ML IV ONE (10:45)
--- NOTE | 2019-02-15 10:45 | NUR ---
BEDSIDE Dr. Cano bedside. New orders received.
[2019-02-15] MEDS ORDERED: VANCOMYCIN 500 MG in D5W 5% 100 ML IV ONE (11:00)
[2019-02-15] MEDS: POTASSIUM CHLORIDE 40 MEQ, LIDOCAINE 1% (LOCAL ANESTH.) 4 ML in SODIUM CHL 0.9% 100 ML IV ONE ×2 (11:08→15:30)
--- NOTE | 2019-02-15 11:18 | NUR ---
NUTRITION CONSULT/ASSESSMENT NOTES Please refer to link notes of nutrition screen form filed under the intervention section of the plan of care for further details. Est. Needs: 1600 kcal to 1800 kcal (30-35 kcal/kgBW), 53 gms to 64 gms pro (1.0-1.2 gms/kgBW). Will continue to monitor pertinent labs and reassess nutrient need prn Thank you for this consult. Addendum: 02/15/19 at [address] Amended: Links added.
--- NOTE | 2019-02-15 12:04 | NUR ---
CALLED BLOOD BANK Called and spoke to blood bank in regards to platelets, tech ordered platelets but does not know when they will be delivered.
[2019-02-15] MEDS ORDERED: SODIUM BICARBONATE 50ML VIAL 150 ML in D5W 5% 1,000 ML IV SCH (13:30)
--- NOTE | 2019-02-15 13:30 | NUR ---
A-LINE INSERTED Patient tolerated well. Arterial reading now displayed on monitor.
[2019-02-15] MEDS ORDERED: HYDROCORTISONE SOD SUCC 100 MG/2ML INJ VIAL IV SCH (14:00)
--- NOTE | 2019-02-15 15:22 | NUR ---
FAMILY NOTIFIED Dr. Worrell notified of ABG results, per Dr. Worrell the outlook does not look good and family needs to be alerted.
--- NOTE | 2019-02-15 15:27 | NUR ---
SPOKE TO FAMILY I pulled the patients daughter and sister into the chapel for privacy where I updated them on the patients declining laboratory results and outlook.
--- NOTE | 2019-02-15 15:49 | NUR ---
Respiratory note: SWITCHED PATIENT OVER TO ANOTHER VENTILATOR DUE TO INCREASE IN PEEP. PEEP IS NOW +10, PER DR. PEREZ. SWITCHED PATIENT OVER W/O ANY INCIDENT. DEMOND HARRIS IS AWARE.
[2019-02-15] MEDS ORDERED: ACCU-CHEK COMFORT CURVE STRIP VI SCH (16:00)
[2019-02-15 16:13] LABS: Hepatitis A Ab IgM Negative
[2019-02-15 16:14] LABS: Hepatitis B Core IgM Negative; Hepatitis B Surface Antigen Negative (Negative); Hepatitis C Antibody Negative (Negative)
--- NOTE | 2019-02-15 16:36 | NUR ---
SPOKE TO FAMILY BEDSIDE Spoke to he daughter Livia at the bedside, she asked about comfort measures. I explained the comfort measures/DNR to the patient, explaining that we make sure the patient is not in any pain or experiencing any anxiety if they choose to terminally wean the patient.
[2019-02-15] MEDS ORDERED: SODIUM BICARBONATE 8.4 % INJ 50ML VIAL IV ONE (17:15)
[2019-02-15] MEDS ORDERED: LORazepam 2MG/ML-1ML VIAL IV PRN (18:00)
[2019-02-15] MEDS ORDERED: MORPHINE SULF INJ 2 MG/ML SYRINGE 1ML IV PRN (18:00)
--- NOTE | 2019-02-15 18:06 | NUR ---
[facility] Spoke to [facility]. Spoke to Abby, gave her patient information. .
--- NOTE | 2019-02-15 18:39 | NUR ---
DRIPS OFF Premedicated patient and drips turned off at this time
--- NOTE | 2019-02-15 18:44 | NUR ---
EXTUBATED Patient extubated at this time. Patient was premedicated as ordered. RT Renetta bedside completed extubation.
--- NOTE | 2019-02-15 19:00 | NUR ---
HARPSICHORD MAKER NOTIFIED Awaiting call back.
--- NOTE | 2019-02-15 19:12 | NUR ---
MERCHANDISE PRESENTATION MANAGER BEDSIDE Hima Granados bedside. Patient pronounced at this time.
--- NOTE | 2019-02-15 19:20 | NUR ---
PT Addendum: 02/15/19 at 2135 by Monique Santiago RN Amended: Links added.
--- NOTE | 2019-02-15 19:40 | NUR ---
FRONT OFFICE ADMINISTRATOR CALLED FRONT OFFICE ADMINISTRATOR'S OFFICE AWAITING CALL BACK FROM OFFICER
--- NOTE | 2019-02-15 19:44 | NUR ---
[facility] notified of cardiac .
--- NOTE | 2019-02-15 20:30 | NUR ---
ELECTRIC METER TESTER HELPER ELECTRIC METER TESTER HELPER CALLED BACK. BODY RELEASED BY ELECTRIC METER TESTER HELPER LUNA BURLINGTON FLATS ELECTRIC METER TESTER HELPER
--- NOTE | 2019-02-15 21:10 | NUR ---
[facility] CALL[facility] - BODY RELEASED
--- NOTE | 2019-02-15 21:20 | NUR ---
POST MORTEM CARE DONE LINES REMOVED PATIENT PLACED IN BODY BAG
--- NOTE | 2019-02-15 21:32 | NUR ---
CALLED MORTUARY SERVICE INFORMED THAT BODY WAS RELEASED BY COMMUNICATION AND OUTREACH MANAGER TRAIN DISPATCHER ESTIMATE 2HOURS
--- NOTE | 2019-02-15 22:05 | NUR ---
MORTUARY MORTUARY STAFF CALLED ETA 50 MINUTES
--- NOTE | 2019-02-15 23:46 | NUR ---
Body released to Mortuary staff Kelly Landis
--- NOTE | 2019-02-15 23:48 | NUR ---
family called Family called at [phone] talked to Leatha and informed that the Mortuary is getting the body now He noted
== END 2019-02-15 23:48 | disposition expired | DRG 871 ==
LOC: EDBD 17:19 → ER 17:29 → TELE 17:30 → ICU WEST 02-15 02:15
PROVIDERS: ADMIT Hospitalist; ATTEND Internal Medicine
PROC: 30233R1 Transfusion of Nonautologous Platelets into Peripheral Vein, Percutaneous Approach (ICD-10-PCS; 2019-02-13)
PROC: 5A1945Z Respiratory Ventilation, 24-96 Consecutive Hours (ICD-10-PCS; principal; 2019-02-14)
PROC: 0BH17EZ Insertion of Endotracheal Airway into Trachea, Via Natural or Artificial Opening (ICD-10-PCS; 2019-02-14)
PROC: 03HY32Z Insertion of Monitoring Device into Upper Artery, Percutaneous Approach (ICD-10-PCS; 2019-02-15)
DX: A41.9 Sepsis, unspecified organism (principal); E43 Unspecified severe protein-calorie malnutrition; R65.21 Severe sepsis with septic shock; J96.01 Acute respiratory failure with hypoxia; J96.02 Acute respiratory failure with hypercapnia; N17.0 Acute kidney failure with tubular necrosis; J69.0 Pneumonitis due to inhalation of food and vomit; G92 Toxic encephalopathy; N18.4 Chronic kidney disease, stage 4 (severe); N17.9 Acute kidney failure, unspecified; D61.818 Other pancytopenia; E87.1 Hypo-osmolality and hyponatremia; Z68.1 Body mass index [BMI] 19.9 or less, adult; E87.4 Mixed disorder of acid-base balance; E16.2 Hypoglycemia, unspecified; K52.9 Noninfective gastroenteritis and colitis, unspecified; E86.0 Dehydration; E87.6 Hypokalemia; E83.42 Hypomagnesemia; M10.9 Gout, unspecified; D63.8 Anemia in other chronic diseases classified elsewhere; R31.9 Hematuria, unspecified; D69.6 Thrombocytopenia, unspecified; E83.51 Hypocalcemia; F15.10 Other stimulant abuse, uncomplicated; Z51.5 Encounter for palliative care; Z91.19 Patient's noncompliance with other medical treatment and regimen; Z66 Do not resuscitate; Z79.899 Other long term (current) drug therapy
CPT/HCPCS: 36415; 36600; 71045; 71250; 74176; 76705; 76942; 80048; 80053; 80074; 80202; 80307; 81001; 82040; 82270; 82607; 82728; 82746; 82805; 82962; 83010; 83540; 83550; 83605; 83615; 83735; 83880; 84484; 85007; 85025; 85027; 85610; 85730; 86703; 86850; 86880; 86900; 86901; 86920; 87040; 87070; 87077; 87081; 87186; 87205; 87493; 93005; 94002; 94003; 94640; 96365; 96366; 96375; C9113; G0378; J0171; J0330; J0610; J1447; J1956; J2001; J2250; J2405; J2543; J3480; J7060